=== PATIENT | male | born 1955 | race Caucasian/White ===

== ENCOUNTER 2021-10-24 15:40 | Inpatient (IN) ==
[2021-10-24 16:09] LABS: Basophils # (auto) 0.01 K/uL (0-0.2); Basophils % (auto) 0.1 %; Eosinophils # (auto) 0.01 K/uL (0-0.5); Eosinophils % (auto) 0.1 %; Hematocrit (blood only) 46.9 % (42-52); Hemoglobin 15.6 g/dL (14.0-18.0); Immature Granulocytes # (auto) 0.06 K/uL (0.00-0.02); Immature Granulocytes % (auto) 0.4 %; Lymphocytes # (auto) 0.34 K/uL (1.2-3.4); Lymphocytes % (auto) 2.2 %; Mean Corpuscular Hemoglobin 29.4 pg (25-34); Mean Corpuscular Hgb Conc 33.3 g/dL (32-36); Mean Corpuscular Volume 88.3 fL (80-100); Monocytes # (auto) 0.47 K/uL (0.11-0.59); Neutrophils # (auto) 14.74 K/uL (1.4-6.5); Neutrophils % (auto) 94.2 %; Platelet Count 221 K/uL (130-400); RDW Coefficient of Variation 14.6 % (11.5-14.5); RDW Standard Deviation 47.2 fL (36.4-46.3); Red Blood Count 5.31 M/uL (4.7-6.1); White Blood Count 15.63 K/uL (4.8-10.8)
[2021-10-24 16:24] LABS: Influenza A virus by PCR Negative (Negative); Influenza B virus by PCR Negative (Negative)
--- NOTE | 2021-10-24 16:55 | XRay Report ---
XR chest 1V portable CLINICAL HISTORY: tachycardic, febrile COMPARISON STUDY: No previous studies for comparison. FINDINGS: Lung volumes are normal. Lungs are clear. There is no pneumothorax or pleural effusion. Car diac size is normal. Mediastinal contours are normal. There is no evidence for pulmonary edema. IMPRESSION: No acute cardiopulmonary findings. ACT 112: Negative or not required by law. Electronically signed by: Rahul Pichardo M.D. 10/24/2021 4:54 PM
[2021-10-24] MEDS ORDERED: cefTRIAXone SODIUM 2,000 MG/70 ML BAG IV STA (17:23)
[2021-10-24] MEDS ORDERED: SODIUM CHLORIDE 0.9% 1000ML 1,000 ML IV ONE (17:23)
[2021-10-24] MEDS ORDERED: ACETAMINOPHEN 325 MG TAB PO STA (17:24)
[2021-10-24] MEDS ORDERED: VANCOMYCIN HCL 1,750 MG in SODIUM CHLORIDE 0.9% 500 ML IV STA (17:27)
[2021-10-24] MEDS ORDERED: PATIENT'S HEIGHT AND/OR WEIGHT NEEDED ONE (17:30)
--- NOTE | 2021-10-24 17:30 | Emergency Department Note ---
History of Present Illness General Chief complaint: Illness Stated complaint: tremors Time Seen by Provider: 10/24/21 17:13 Source: patient Mode of arrival: other (Longterm guards from the [facility]) Limitations: no limitations History of Present Illness This patient is a 66-year-old male who is currently an inmate at the [facility], comes in after having rigors since around 9:00 this morning. He has had some redness in his right leg. He said chronic issues with this leg since getting injured as a child he says that he gets infections and he usually takes oral antibiotics and gets better. He comes in today with a temperature of 39.4. He said no cough or shortness of breath he did vomited once but has no other nausea vomiting abdominal pain no dysuria hematuria no rash besides the redness in his leg no known sick contacts. He has been vaccinated against Covid. He has chronic swelling of the right leg that goes up and down. Home Medications Medication Instructions Recorded Confirmed Type No Known Home Medications 10/24/21 10/24/21 History Allergies Allergy/AdvReac Type Severity Reaction Status Date / Time No Known Allergies Allergy Unverified 10/24/21 18:32 Past Med/Surg History Social History Smoking Status: Former smoker Tobacco Type: Cigarettes Preferred Language: Indonesian Feels Safe at Home: Yes Immunizations: Past medical historyinjury to right leg with chronic swelling and intermittent cellulitis Social history currently at [facility]. He has history of using meth but denies other drugs Review of Systems A total of 10 systems reviewed and were otherwise negative Physical Exam Vital Signs Vital Signs - 24 hr 10/24/21 15:48 10/24/21 17:21 10/24/21 18:01 Temperature 39.4 C H Temperature Source Oral Pulse Rate 120 H 111 H Pulse Rate [Apical] 112 H Pulse Rate from SpO2 Sensor Pulse Strength [Apical] Normal Respiratory Rate 18 16 28 H Respiratory Effort / Characteristics Non-Labored Respiratory Depth Normal Blood Pressure 159/84 H Blood Pressure [Left Arm] 142/79 H Blood Pressure Mean 109 Blood Pressure Mean [Left Arm] 100 Pulse Oximetry 98 98 Oxygen Delivery Method Room Air Room Air Sepsis Recent Fever Within 48 Hours Yes Sepsis New/Unexplained Change in Mental Status No Sepsis Action Taken by Nursing No Action Required 10/24/21 18:30 10/24/21 19:00 10/24/21 19:30 Temperature Temperature Source Pulse Rate 111 H 109 H 104 H Pulse Rate [Apical] Pulse Rate from SpO2 Sensor 111 H Pulse Strength [Apical] Respiratory Rate 28 H 27 H 24 Respiratory Effort / Characteristics Respiratory Depth Blood Pressure 142/72 H Blood Pressure [Left Arm] Blood Pressure Mean 95 Blood Pressure Mean [Left Arm] Pulse Oximetry 94 Oxygen Delivery Method Sepsis Recent Fever Within 48 Hours Sepsis New/Unexplained Change in Mental Status Sepsis Action Taken by Nursing 10/24/21 20:00 Temperature Temperature Source Pulse Rate 105 H Pulse Rate [Apical] Pulse Rate from SpO2 Sensor Pulse Strength [Apical] Respiratory Rate 20 Respiratory Effort / Characteristics Respiratory Depth Blood Pressure 110/54 L Blood Pressure [Left Arm] Blood Pressure Mean 72 Blood Pressure Mean [Left Arm] Pulse Oximetry 97 Oxygen Delivery Method Room Air Sepsis Recent Fever Within 48 Hours Sepsis New/Unexplained Change in Mental Status Sepsis Action Taken by Nursing General: Well developed well nourished older male who appears in no acute distress, breathing comfortably on room air. Normal speech HEENT: Normal cephalic atraumatic. Pupils are equal round and reactive to light. Extraocular movements are intact. Oropharynx is pink with moist mucous membranes. No swelling of the mouth lips or tongue. Neck: Supple with a midline trachea. No meningeal signs or stiffness, no JVD or bruits. No Stridor. Chest: Clear to auscultation bilaterally. No wheezes or rhonchi. No increased work of breathing. Heart: Regular rate and rhythm without murmurs or gallops. Abdomen: Soft nontender, nondistended without rebound guarding or rigidity. Extremities: No cyanosis clubbing or edema. Redness in right calf diffusely with some swelling. Normal distal pulses. Normal motor and sensation. Spine/Back. Non tender to palpation. No CVA tenderness Skin: Good turgor without rashes. Neurologic exam: Cranial nerves two through 12 are intact. Motor and sensation are intact and symmetrical throughout. Course Administered Medications Discontinued Medications Acetaminophen (Acetaminophen 325 Mg Tab) 650 mg PO NOW STA Stop: 10/24/21 17:25 Last Admin: 10/24/21 18:26 Dose: 650 mg Documented by: [id number] Sodium Chloride (Nss 1000ml) 1,000 mls @ 999 mls/hr IV .Q1H1M ONE Stop: 10/24/21 18:23 Last Infusion: 10/24/21 20:51 Dose: 0 mls/hr Documented by: [id number] Admin: 10/24/21 19:47 Dose: 999 mls/hr Documented by: [id number] Ceftriaxone Sodium (Rocephin) 2,000 mg in 70 mls @ 140 mls/hr IV NOW STA Stop: 10/24/21 17:52 Last Infusion: 10/24/21 21:50 Dose: 0 mls/hr Documented by: [id number] Admin: 10/24/21 19:44 Dose: 140 mls/hr Documented by: [id number] Vancomycin HCl 1,500 mg/ (Sodium Chloride) 530 mls @ 200 mls/hr IV NOW ONE Stop: 10/24/21 20:23 Last Admin: 10/24/21 22:05 Dose: 200 mls/hr Documented by: [id number] Medical Decision Making Differential Diagnosis Sepsis, cellulitis, DVT, Covid, electrolyte or metabolic abnormality Medical Records Attestation: I reviewed the patient's medical records. Home Medications Current Medication List: was personally reviewed by me Laboratory Data Attestation: I reviewed the patient's lab results. Result diagrams: 10/24/21 15:55 10/24/21 17:18 Lab Results 10/24/21 10/24/21 10/24/21 Range/Units 15:55 15:55 15:55 WBC 15.63 H (4.8-10.8) K/uL RBC 5.31 (4.7-6.1) M/uL Hgb 15.6 (14.0-18.0) g/dL Hct 46.9 (42-52) % MCV 88.3 (80-100) fL MCH 29.4 (25-34) pg MCHC 33.3 (32-36) g/dL RDW Std Deviation 47.2 H (36.4-46.3) fL RDW Coeff of Conner 14.6 H (11.5-14.5) % Plt Count 221 (130-400) K/uL MPV 12.0 H (7.4-10.4) fL Immature Gran % (Auto) 0.4 % Neut % (Auto) 94.2 % Lymph % (Auto) 2.2 % Wilkes % (Auto) 3.0 % Eos % (Auto) 0.1 % Baso % (Auto) 0.1 % Neut # (Auto) 14.74 H (1.4-6.5) K/uL Lymph # (Auto) 0.34 L (1.2-3.4) K/uL Wilkes # (Auto) 0.47 (0.11-0.59) K/uL Eos # (Auto) 0.01 (0-0.5) K/uL Baso # (Auto) 0.01 (0-0.2) K/uL Immature Gran # (Auto) 0.06 H (0.00-0.02) K/uL PT Cancelled INR Cancelled APTT Cancelled PTT Ratio Cancelled Sodium Cancelled Potassium Cancelled Chloride Cancelled Carbon Dioxide Cancelled Anion Gap Cancelled BUN Cancelled Creatinine Cancelled Est Cr Clr Drug Dosing Cancelled Est GFR ( Amer) Cancelled Est GFR (Non-Af Amer) Cancelled BUN/Creatinine Ratio Cancelled Glucose Cancelled Lactate (0.4-2.0) mmol/L Calcium Cancelled Magnesium (1.8-2.4) mg/dl Total Bilirubin Cancelled AST Cancelled ALT Cancelled Alkaline Phosphatase Cancelled Total Protein Cancelled Albumin Cancelled Globulin Cancelled Albumin/Globulin Ratio Cancelled Influ A Molecular Assay (Negative) Influ B Molecular Assay (Negative) SARS-CoV-2 RNA (GEORGIE) SARS-CoV-2, RNA, NAAT (NEGATIVE) 10/24/21 10/24/21 10/24/21 Range/Units 15:55 15:55 17:18 WBC (4.8-10.8) K/uL RBC (4.7-6.1) M/uL Hgb (14.0-18.0) g/dL Hct (42-52) % MCV (80-100) fL MCH (25-34) pg MCHC (32-36) g/dL RDW Std Deviation (36.4-46.3) fL RDW Coeff of Conner (11.5-14.5) % Plt Count (130-400) K/uL MPV (7.4-10.4) fL Immature Gran % (Auto) % Neut % (Auto) % Lymph % (Auto) % Wilkes % (Auto) % Eos % (Auto) % Baso % (Auto) % Neut # (Auto) (1.4-6.5) K/uL Lymph # (Auto) (1.2-3.4) K/uL Wilkes # (Auto) (0.11-0.59) K/uL Eos # (Auto) (0-0.5) K/uL Baso # (Auto) (0-0.2) K/uL Immature Gran # (Auto) (0.00-0.02) K/uL PT 10.3 INR 1.0 APTT 21.3 PTT Ratio 0.8 Sodium Potassium Chloride Carbon Dioxide Anion Gap BUN Creatinine Est Cr Clr Drug Dosing Est GFR ( Amer) Est GFR (Non-Af Amer) BUN/Creatinine Ratio Glucose Lactate (0.4-2.0) mmol/L Calcium Magnesium (1.8-2.4) mg/dl Total Bilirubin AST ALT Alkaline Phosphatase Total Protein Albumin Globulin Albumin/Globulin Ratio Influ A Molecular Assay Negative (Negative) Influ B Molecular Assay Negative (Negative) SARS-CoV-2 RNA (GEORGIE) Cancelled SARS-CoV-2, RNA, NAAT (NEGATIVE) 10/24/21 10/24/21 10/24/21 Range/Units 17:18 17:45 17:49 WBC (4.8-10.8) K/uL RBC (4.7-6.1) M/uL Hgb (14.0-18.0) g/dL Hct (42-52) % MCV (80-100) fL MCH (25-34) pg MCHC (32-36) g/dL RDW Std Deviation (36.4-46.3) fL RDW Coeff of Conner (11.5-14.5) % Plt Count (130-400) K/uL MPV (7.4-10.4) fL Immature Gran % (Auto) % Neut % (Auto) % Lymph % (Auto) % Wilkes % (Auto) % Eos % (Auto) % Baso % (Auto) % Neut # (Auto) (1.4-6.5) K/uL Lymph # (Auto) (1.2-3.4) K/uL Wilkes # (Auto) (0.11-0.59) K/uL Eos # (Auto) (0-0.5) K/uL Baso # (Auto) (0-0.2) K/uL Immature Gran # (Auto) (0.00-0.02) K/uL PT INR APTT PTT Ratio Sodium 136 Potassium 3.8 Chloride 106 Carbon Dioxide 24 Anion Gap 6.0 BUN 13 Creatinine 1.09 Est Cr Clr Drug Dosing 58.8 Est GFR ( Amer) 82.1 Est GFR (Non-Af Amer) 70.9 BUN/Creatinine Ratio 11.9 Glucose 105 H Lactate (0.4-2.0) mmol/L Calcium 9.5 Magnesium 1.9 (1.8-2.4) mg/dl Total Bilirubin 0.7 AST 36 ALT 61 Alkaline Phosphatase 108 Total Protein 8.4 H Albumin 4.1 Globulin 4.3 H Albumin/Globulin Ratio 1.0 Influ A Molecular Assay Cancelled (Negative) Influ B Molecular Assay Cancelled (Negative) SARS-CoV-2 RNA (GEORGIE) SARS-CoV-2, RNA, NAAT NEGATIVE (NEGATIVE) 10/24/21 Range/Units 18:00 WBC (4.8-10.8) K/uL RBC (4.7-6.1) M/uL Hgb (14.0-18.0) g/dL Hct (42-52) % MCV (80-100) fL MCH (25-34) pg MCHC (32-36) g/dL RDW Std Deviation (36.4-46.3) fL RDW Coeff of Conner (11.5-14.5) % Plt Count (130-400) K/uL MPV (7.4-10.4) fL Immature Gran % (Auto) % Neut % (Auto) % Lymph % (Auto) % Wilkes % (Auto) % Eos % (Auto) % Baso % (Auto) % Neut # (Auto) (1.4-6.5) K/uL Lymph # (Auto) (1.2-3.4) K/uL Wilkes # (Auto) (0.11-0.59) K/uL Eos # (Auto) (0-0.5) K/uL Baso # (Auto) (0-0.2) K/uL Immature Gran # (Auto) (0.00-0.02) K/uL PT INR APTT PTT Ratio Sodium Potassium Chloride Carbon Dioxide Anion Gap BUN Creatinine Est Cr Clr Drug Dosing Est GFR ( Amer) Est GFR (Non-Af Amer) BUN/Creatinine Ratio Glucose Lactate 2.5 H* (0.4-2.0) mmol/L Calcium Magnesium (1.8-2.4) mg/dl Total Bilirubin AST ALT Alkaline Phosphatase Total Protein Albumin Globulin Albumin/Globulin Ratio Influ A Molecular Assay (Negative) Influ B Molecular Assay (Negative) SARS-CoV-2 RNA (GEORGIE) SARS-CoV-2, RNA, NAAT (NEGATIVE) Imaging Data Attestation: I personally reviewed and interpreted this imaging study as follows: My Impression: Chest x-rayno acute infiltrate, failure, pneumothorax seen Radiologist's Impression: Chest X-Ray 10/24/21 15:55 XR chest 1V portable CLINICAL HISTORY: tachycardic, febrile COMPARISON STUDY: No previous studies for comparison. FINDINGS: Lung volumes are normal. Lungs are clear. There is no pneumothorax or pleural effusion. Cardiac size is normal. Mediastinal contours are normal. There is no evidence for pulmonary edema. IMPRESSION: No acute cardiopulmonary findings. ACT 112: Negative or not required by law. Electronically signed by: Rahul Pichardo M.D. 10/24/2021 4:54 PM ECG Data Attestation: I personally reviewed and interpreted this ECG as follows: Indication: + weakness Rate (beats per minute): 113 Rhythm: + sinus tachycardia ECG Intervals/blocks: + Normal QRS, + Normal QT and + Normal GA ECG [place]: + Normal ECG ST segments: + Normal ST segments ECG Findings: + PVCs; no PACs Comparison ECG Date: no prior available MDM Narrative This patient comes in as scribed above he has rigors and a fever he has a right swollen red leg which I think is source is cellulitis to that leg he has had problems since being injured as a child. IV access was established I ordered a full sepsis type work-up he was given IV fluid boluses. He looks well. He was given acetaminophen p.o. for his fever and also broad-spectrum antibiotics with IV Rocephin and IV vancomycin. He denies any allergies. He was reassessed frequently. His EKG does not suggest acute coronary syndrome or arrhythmia he does of an elevated white count and lactic acid is mildly elevated 2.5. I do think he needs to be admitted for further IV antibiotics treatment and evaluation. His white count was elevated 15. Ultrasound did not show any evidence of DVT. Chest x-ray has not shown pneumonia. The patient was a difficult IV access and IV team did get an 18-gauge ultrasound-guided large IV. This did delay his fluids and antibiotics however. I have consulted Dr. Abbott for the [facility] to see him for these measures Continuous cardiac monitoring: Orders placed in EMR for continuous cardiac monitoring. Upon my interpretation was noted to be in sinus tachycardia with a rate of 120 Impression & Plan Cellulitis of leg, right, Sepsis, Imprisonment and other incarceration, Lab test negative for COVID-19 virus Discharge Plan Visit Data Chief Complaint: Illness Stated Complaint: tremors ED Provider: Avery Connell Discharge Problem: Cellulitis of leg, right, Sepsis, Imprisonment and other incarceration, Lab test negative for COVID-19 virus
[2021-10-24 17:39] LABS: Partial Thromboplastin Ratio 0.8; Partial Thromboplastin Time 21.3 Seconds (21.0-31.0); Prothrombin Time 10.3 Seconds (9.0-12.0)
[2021-10-24] MEDS ORDERED: VANCOMYCIN HCL 1,500 MG in SODIUM CHLORIDE 0.9% 500 ML IV ONE (17:45)
[2021-10-24 17:50] LABS: Albumin Level 4.1 gm/dl (3.4-5.0); BUN Creatinine Ratio 11.9 (10-20); Calcium 9.5 mg/dl (8.5-10.1); Creatinine Clr Calc Pharmacy 58.8 ml/min; Est GFR (African American) 82.1 ml/min; Est GFR (Non-African American) 70.9 ml/min; Magnesium 1.9 mg/dl (1.8-2.4); Potassium 3.8 mmol/L (3.5-5.1)
[2021-10-24 17:53] LABS: Bilirubin,Total 0.7 mg/dl (0.2-1); Globulin 4.3 gm/dl (2.5-4.0); Total Protein 8.4 gm/dl (6.4-8.2)
--- NOTE | 2021-10-24 19:48 | History & Physical Report ---
Date of Service October 24, 2021 Assessment & Plan (1) Cellulitis of leg, right: Plan: Patient is a 66 year old with no past medical or surgical history that presents with history of rigors, chills, and redness/pain/swelling of his RLE. R Leg Cellulitis -In addition to sepsis by SIRS criteria with Temp 39.4C, White count >15k, Tachycardic 104bpm, Lactic acid 2.5 on admission -Received CTX and Vancomycin in ED in addition to 1L NSS -Will continue Vancomycin and CTX IV -Blood cultures pending -Repeat lactate ordered -Continue hydration with NSS +20meq KCl 100ml/hr x2 L -Low suspicion for DVT, though with patient's pain, swelling, and redness, will check a RLE Venous Doppler Dispo: Med/Surg Telemetry for monitoring while septic, likely downgrade to med- surg once properly fluid resuscitated FEN: Regular diet, NSS +KCl 100ml/hr x2L DVT: Lovenox Code: Full (2) Sepsis: History of Present Illness Chief Complaint: rigors, chills Primary Care Provider: ERNST Buchanan Patient is a 66 year old with no past medical or surgical history that presents with history of rigors, chills, and redness/pain/swelling of his RLE. Patient notes that around 9AM this morning he had woke up with chills and shaking. He also notes that he started with swelling and redness in his RLE shortly afterwards. Interestingly enough, he notes that he injured this leg when he was a teen and since then every so often he would have a similar presentation that would require antibiotics before the redness, pain, and swelling would dissipate. He notes currently that he has a headache, tenderness to palpation of his distal RLE, fever, and chills. He denies any NVD, SOB, Chest pain, chest pressure, abdominal pain, dysuria. Med Hx: History of a heart murmur that has "been there since I was little" Surg Hx: pt denies any history of surgeries Soc Hx: Pt denies tobacco, alcohol, illicit drug use Medications: Patient denies use of any chronic medications Allergies Allergy/AdvReac Type Severity Reaction Status Date / Time No Known Allergies Allergy Unverified 10/24/21 18:32 Home Medications Medication Instructions Recorded Confirmed Type No Known Home Medications 10/24/21 10/24/21 History Past Med/Surg History Social History Smoking Status: Unknown if ever smoked Tobacco Type: Cigarettes Preferred Language: Ugandan Communication Ability: Effective [employer] Required: No Beliefs That Will Affect Care: None Current Living Situation: Other Current Living Situation Comment: [facility] Feels Safe at Home: Yes Assistive Devices: None Review of Systems Review of Systems: All systems reviewed & are unremarkable except as noted in Subjective Physical Exam Constitutional: well developed, well nourished and cooperative; no acute distress and + not appropriately hydrated Eyes: PERRL, conjunctivae normal, anicteric sclerae ENMT: external ear and nose normal, oropharynx normal Mouth: + edentulous (on bottom, not wearing his dentures ) Neck: trachea midline, no thyromegaly Respiratory: normal respiratory effort, lungs clear to auscultation Cardiovascular: Rate/Rhythm: regular rhythm and + tachycardic Heart Sounds: normal S1, normal S2 and + murmur (2-3/6 MARQUEZ ) Vessels: no JVD Extremities: + calf tenderness (RLE ) and + edema (1+ RLE ) Gastrointestinal (Abdomen): normal bowel sounds, soft, nontender, no hep atosplenomegaly Musculoskeletal: no cyanosis or clubbing, extremities motor strength 5/5 Skin: Erythema noted just below the R knee spreading towards just proximal to the R ankle. Leg is tender to palpation wild mild swelling. A few healing abrasions are noted on the anterior tibia. Neurologic: PERRL, EOMI, accommodation nl, no face palsy, no dysarthria Psychiatric: A+Ox3, euthymic affect Results & Data Results & Data (MN) Vital Signs (Past 12 Hours) Vital Signs Temp Pulse Pulse Resp BP BP Pulse Ox 10/24/21 17:21 112 H 16 142/79 H 98 10/24/21 15:48 39.4 C H 120 H 18 159/84 H 98 Supervising Physician Co-Signing Physician Notes Attending addendum: I have physically seen this patient, have supervised the medical residents activities, and agree with the H&P unless as otherwise noted. Assessment and Plan: Cellulitis of right leg- Continue vancomycin IV and ceftriaxone IV begun in the ED Follow blood culture and sensitivities NSS + KCl 20 mEq at 100 mils per hour x2 L Order right lower extremity venous Doppler Remaining orders and notations as noted Resident Activity Tracking Resident Involvement: Resident Care Provided Care Provided: Adult Hospital Medicine
[2021-10-24 22:10] LABS: Appearance Urine Clear (Clear); Bilirubin Urine Negative (Negative); Blood Urine Negative (Negative); Color Urine Yellow; Glucose Urine UA Negative (Negative); Ketones Urine Negative (Negative); Leukocyte Esterase Urine Negative (Negative); Nitrite Urine Negative (Negative); Protein Urine Negative (Negative); Specific Gravity Urine 1.014 (1.000-1.030); Urobilinogen Urine Negative (Negative)
[2021-10-24] MEDS ORDERED: VANCOMYCIN CONSULT ACTIVE PRN (22:51)
[2021-10-24] MEDS ORDERED: ONDANSETRON INJ 2 MG/ML 2 ML VIAL IV PRN (22:51)
[2021-10-25] MEDS: ACETAMINOPHEN 325 MG TAB PO PRN ×2 (00:06→17:25)
[2021-10-25] MEDS: NSS + 20MEQ KCL 20 MEQ/1,000 ML BAG IV SCH ×2 (01:48→15:14)
--- NOTE | 2021-10-25 06:33 | Hospitalist Progress Note ---
Date of Service October 25, 2021 Assessment & Plan (1) Cellulitis of leg, right: Plan: Patient is a 66 year old male inmate w/ PMHx of meth IVDU and arthritis who presents with fever, rigors and redness/pain/swelling of his RLE. R Leg Cellulitis with sepsis -In addition to sepsis by SIRS criteria with Temp 39.4C, White count >15k, Tachycardic 104bpm, Lactic acid 2.5 on admission. Afebrile during day but spiked to 38.8C in afternoon. -Received CTX and Vancomycin in ED in addition to 1L NSS -Started on vancomycin and CTX IV. DC CTX because cellulitis is nonpurulent -Blood cultures pending, set 1 prelim neg x 24 hrs -Hx of IVDU and murmur noted on admission exam, but lower suspicion of endocarditis at this time. Will follow blood cultures; less likely to have endocarditis if not bacteremic -Continue hydration with NSS +20meq KCl 100ml/hr x2 L -Low suspicion for DVT, though with patient's pain, swelling, and redness, will check a RLE Venous Doppler Hypokalemia -Repleting. Mg 1.9. Follow BMP Dispo: Med/Surg Telemetry FEN: Regular diet. IV fluids discontinued. DVT: Lovenox Code: Full (2) Sepsis: Admission and Anticipated Discharge Date Admission Date: October 24, 2021 Supervising Physician Co-Signing Physician Notes Generally feeling okay except for the fact that his right leg is still red and swollen, may be even a little bit worse. Notes this has happened several times in the past. Does not recall any sort of circulation evaluation. Vitals noted, in general he is awake and alert pleasant no distress. HEENT normocephalic atraumatic mucous membranes moist. Breathing unlabored no accessory muscle use good effort. Right lower extremity shows diffuse erythema up to just distal of the knee, the knee itself does not really seem to be involved, he does have some very faint pink blotchiness proximal to the knee on his anterior thigh, and an extremely faint pink streak in his medial thigh none of which are tender. There is no crepitus/sloughing/etc. Cellulitis with sepsisgiven the faint streaking in his medial thigh, I wonder if he also had a degree of lymphangitis, which would probably explain why he had such a marked septic response. Fortunately clinically he appears more stable from a sepsis standpoint (good blood pressure, heart rate, temperature)his white count did go up, but antibiotics were just started yesterday, and he shows no concerning endorgan dysfunction. Nothing appears clinically consistent with necrotizing fasciitis. Continue Vanco and supportive care, anticipate improvement soon. While his foot appears to be spared, and it would be a bit odd for vascular disease to manifest as a initially mid tibial cellulitic process, given that he gets infections over and over, it may be reasonable as an outpatient to evaluate for any sort of circulatory dysfunction. DVT prophylaxisLovenox Subjective Chills since 2 nights ago. RLE swelling and erythema since yesterday AM. From [facility]. Has had intermittent cellulitis of RLE for years, started after wound injury at age 20. He gets flares every few months. Denies tick bites. Hx of meth IV drug use, last used 1 yr ago. ROS: has chills and myalgias. No chest pain. Had MOREL upon ED arrival. Otherwise healthy. Has chronic arthritic pains. Has had chronic neuropathic burning sensation, mild, at R lateral thigh. Review of Systems Review of Systems: All systems reviewed & are unremarkable except as noted in HPI & below See HPI Physical Exam Physical Exam: General: Grossly A&O. NAD. Cooperative. HEENT: Atraumatic, normocephalic. EOMI Pulm: CTAB anteriorly. -wheezes, -rales, -rhonchi. No respiratory distress. Cardiac: RRR, -mrg. 3+ RLE pitting edema. No murmur on my exam. Integ: RLE bright erythema of lower leg. Msk: Patient did not have severe pain during palpation of edema of leg while assessing for pitting edema. Results & Data Results & Data ([facility]) Vital Signs (Past 12 Hours) Vital Signs tachy to 110s, 100s at admission, tachycardia resolved. BPs 100s-110s/~50s. 98 on room air ->95 on 6L NC Temp Pulse Pulse Resp BP BP Pulse Ox 10/25/21 05:23 71 16 115/69 95 10/25/21 05:00 82 16 112/47 L 98 10/24/21 22:51 36.9 C 90 16 100/50 L 98 10/24/21 22:50 98 H 16 104/56 L 98 10/24/21 21:00 103 H 20 97 10/24/21 20:30 100 H 20 97 10/24/21 20:00 105 H 20 110/54 L 97 10/24/21 19:30 104 H 24 142/72 H 10/24/21 19:00 109 H 27 H Pulse Ox 10/25/21 05:23 10/25/21 05:00 10/24/21 22:51 98 10/24/21 22:50 10/24/21 21:00 10/24/21 20:30 10/24/21 20:00 10/24/21 19:30 10/24/21 19:00 Laboratory Results admission labs wbc 15.63. BMP acceptable. K 3.8. Cr 1.09, baseline unknown. lactate 2.8H. Mg 1.9. UA not suggestive of infection. cxr no acute. venous doppler neg DVT RLE. + mild R inguinal LAD. 10/24 BC pending. ecg 113 sinus tach w/ pvcs AM labs: wbc 15.63->24.29. K 3.4 Diagnostic Findings Chest X-Ray 10/24/21 15:55 XR chest 1V portable CLINICAL HISTORY: tachycardic, febrile COMPARISON STUDY: No previous studies for comparison. FINDINGS: Lung volumes are normal. Lungs are clear. There is no pneumothorax or pleural effusion. Cardiac size is normal. Mediastinal contours are normal. There is no evidence for pulmonary edema. IMPRESSION: No acute cardiopulmonary findings. ACT 112: Negative or not required by law. Electronically signed by: Rahul Pichardo M.D. 10/24/2021 4:54 PM Venous Doppler Study 10/24/21 19:54 RIGHT LOWER EXTREMITY VENOUS DOPPLER HISTORY: Right leg swelling and redness COMPARISON STUDY: None. FINDINGS: There is normal compressibility, flow, and augmentation within the right lower extremity deep venous system. Mild right inguinal lymphadenopathy. Dominant lymph node measures 24 x 16 x 11 mm. IMPRESSION: No DVT within the right lower extremity. Mild right inguinal lymphadenopathy. This may be reactive. ACT 112: Negative or not required by law. Electronically signed by: Galo Ty M.D. 10/25/2021 8:10 AM Resident Activity Tracking Resident Involvement: Resident Care Provided Care Provided: Adult Hospital Medicine (1) Sepsis Sepsis acute organ dysfunction status: unspecified Sepsis type: sepsis due to unspecified organism Qualified Code(s): A41.9 - Sepsis, unspecified organism
--- NOTE | 2021-10-25 07:39 | Electrocardiogram Report ---
Test Reason : Blood Pressure : / mmHG Vent. Rate : 113 BPM Atrial Rate : 113 BPM P-R Int : 180 ms QRS Dur : 096 ms QT Int : 318 ms P-R-T Axes : 054 003 055 degrees QTc Int : 436 ms Sinus tachycardia with frequent Premature ventricular complexes Otherwise normal ECG No previous ECGs available Confirmed by Virgil Ontiveros ([id number]) on 10/25/2021 7:38:41 AM Referred By: Dewayne DUKES Confirmed By:Gutierrez Ontiveros
--- NOTE | 2021-10-25 08:11 | Ultrasound Report ---
RIGHT LOWER EXTREMITY VENOUS DOPPLER HISTORY: Right leg swelling and redness COMPARISON STUDY: None. FINDINGS: There is normal compressibility, flow, and augmentation within the right lower extremity de ep venous system. Mild right inguinal lymphadenopathy. Dominant lymph node measures 24 x 16 x 11 mm. IMPRESSION: No DVT within the right lower extremity. Mild right inguinal lymphadenopathy. This may be reactive. ACT 112: Negative or not required by law. Electronically signed by: Galo Ty M.D. 10/25/2021 8:10 AM
--- NOTE | 2021-10-25 08:14 | Pharmacy Report ---
Pharmacy Abx Initial Consult - Date of Service October 25, 2021 - Pharmacy Dosing Scope Date of Consult: 10/24/21 Consultation requested by: Dr. Velasco Pharmacy is consulted to initiate Vancomycin IV/PO dosing therapy, order appropriate labs and adjust drug dose/frequency. - Subjective The patient is a 66 year old M admitted on 10/24/21 20:01. - Objective Height: 5 ft 5 in Weight: 66.5 kg Vital Signs (Past 12hrs): Vital Signs Temp Pulse Pulse Resp BP BP Pulse Ox 10/25/21 05:23 71 16 115/69 95 10/25/21 05:00 82 16 112/47 L 98 10/24/21 22:51 36.9 C 90 16 100/50 L 98 10/24/21 22:50 98 H 16 104/56 L 98 10/24/21 21:00 103 H 20 97 10/24/21 20:30 100 H 20 97 Pulse Ox 10/25/21 05:23 10/25/21 05:00 10/24/21 22:51 98 10/24/21 22:50 10/24/21 21:00 10/24/21 20:30 Lab Results (24hrs): Laboratory Tests (24 Hours) 10/24/21 10/24/21 10/24/21 17:18 15:55 15:55 WBC 15.63 H Neut # (Auto) 14.74 H Creatinine 1.09 Cancelled Est Cr Clr Drug Dosing 58.8 Cancelled Micro Results: 10/24/21 18:55 Aerobic Blood Culture - Pending Blood Anaerobic Blood Culture - Pending 10/24/21 18:00 Aerobic Blood Culture - Pending Blood Anaerobic Blood Culture - Pending - Risk Factors for Resistance * Resident in a correctional facility * History of infection with a multidrug-resistant organism: None noted * Antimicrobial use within the last 90 days: None noted - Assessment & Plan Assessment 66 year old M presenting with rigors, chills, and redness/pain/swelling of RLE which began yesterday morning around 0900. Patient does have elevated WBCs and had Tmax 39.4. Patient also started on Ceftriaxone 2gm IV q24h. Plan Vancomycin for treatment of cellulitis Vancomycin IV * Estimated PK Parameters: Vd 0.74 L/kg, Efren 0.053 hr-1, t1/2 13 hr * Loading dose: 1500 mg (22.6 mg/kg) * Maintenance dose: 750 mg IV (11.3 mg/kg) every 12 hours * Goal trough level : ~15 mcg/mL * Trough/Random level ordered for 10/26/21 @ 0930 AUC/NOAH is the preferred PK/PD target for vancomycin * AUC guided dosing is effective and associated with decreased risk of nephrotoxicity compared to traditional trough targets * Trough level of 18.0 mcg/mL is predicted to achieve target AUC/NOAH of 400-600 mg/L.hr and may be associated with a 14 % risk of nephrotoxicity Pharmacy will continue to follow and will adjust dose/frequency as necessary. Thank you.
[2021-10-25 10:19] LABS: Hematocrit (blood only) 38.5 % (42-52); Hemoglobin 13.2 g/dL (14.0-18.0); Mean Corpuscular Hemoglobin 29.9 pg (25-34); Mean Corpuscular Hgb Conc 34.3 g/dL (32-36); Mean Corpuscular Volume 87.1 fL (80-100); Mean Platelet Volume 11.1 fL (7.4-10.4); Platelet Count 200 K/uL (130-400); RDW Coefficient of Variation 14.7 % (11.5-14.5); RDW Standard Deviation 47.5 fL (36.4-46.3); Red Blood Count 4.42 M/uL (4.7-6.1); White Blood Count 24.29 K/uL (4.8-10.8)
[2021-10-25 10:42] LABS: BUN Creatinine Ratio 13.6 (10-20); Calcium 8.6 mg/dl (8.5-10.1); Creatinine Clr Calc Pharmacy 67.4 ml/min; Est GFR (Non-African American) 83.7 ml/min; Potassium 3.4 mmol/L (3.5-5.1)
[2021-10-25 10:56] LABS: Basophils # (auto) 0.01 K/uL (0-0.2); Immature Granulocytes # (auto) 0.08 K/uL (0.00-0.02); Immature Granulocytes % (auto) 0.3 %; Lymphocytes # (auto) 0.56 K/uL (1.2-3.4); Lymphocytes % (auto) 2.3 %; Monocytes # (auto) 0.38 K/uL (0.11-0.59); Monocytes % (auto) 1.6 %; Neutrophils # (auto) 23.26 K/uL (1.4-6.5); Neutrophils % (auto) 95.8 %
[2021-10-25] MEDS: ENOXAPARIN INJ 40 MG/0.4 ML SYR SQ SCH (12:40)
[2021-10-25] MEDS: VANCOMYCIN HCL 750 MG in SODIUM CHLORIDE 0.9% 500 ML IV SCH ×2 (12:43→21:37)
--- NOTE | 2021-10-25 18:40 | Billing Data ---
Date of Service October 25, 2021 Coding Level of Care Code 27172 Subseq Hosp Care Lvl 3
[2021-10-25] MEDS ORDERED: POTASSIUM CHLORIDE PWD 20 MEQ PACK PO STA (19:07)
[2021-10-25] MEDS ORDERED: cefTRIAXone SODIUM 2,000 MG in DEXTROSE 5% 50 ML IV SCH (20:00)
[2021-10-26] MEDS: ACETAMINOPHEN 325 MG TAB PO PRN (02:48)
--- NOTE | 2021-10-26 03:17 | Billing Data ---
Date of Service October 26, 2021 Coding Level of Care Code 49685 Initial Inpt Care Lvl 2
--- NOTE | 2021-10-26 06:54 | Hospitalist Progress Note ---
Date of Service October 26, 2021 Assessment & Plan (1) Cellulitis of leg, right: Plan: Patient is a 66 year old male inmate w/ PMHx of meth IVDU and arthritis who presents with fever, rigors and redness/pain/swelling of his RLE. R Leg Cellulitis with sepsis; clinically improving -In addition to sepsis by SIRS criteria with Temp 39.4C, White count >15k, Tachycardic 104bpm, Lactic acid 2.5 on admission. Afebrile during day but spiked to 38.8C in afternoon. No hypoxia (6L O2 req was documentation error) - continues to spike fever in evening -Received CTX and Vancomycin in ED in addition to 1L NSS -No wound cultures obtained -Started on vancomycin and CTX IV. Dc'd CTX because cellulitis is nonpurulent -Blood cultures pending, prelim neg x 48 hrs -Hx of IVDU and murmur noted on admission exam, but lower suspicion of endocarditis at this time; murmur since childhood. Will follow blood cultures; less likely to have endocarditis if not bacteremic -Low suspicion for DVT, though with patient's pain, swelling, and redness, will check a RLE Venous Doppler Hypokalemia -Repleting. Mg 1.9. Follow BMP Dispo: Med/Surg Telemetry FEN: Regular diet. IV fluids discontinued. DVT: Lovenox Code: Full (2) Sepsis: Admission and Anticipated Discharge Date Admission Date: October 24, 2021 Supervising Physician Co-Signing Physician Notes Attending addendum: I have physically seen this patient, have supervised the medical residents activities, and agree with the progress note above unless as otherwise noted. Assessment and Plan: Cellulitis of right leg- Continue vancomycin IV Ceftriaxone has been stopped. Erythema appears to have decreased. Follow blood culture and sensitivities Remaining orders and notations as noted Subjective Feeling better today than yesterday. + f/c/diaphoresis, mild. Myalgias resolved. No JOHNSON, cp, sob, dizziness, palpitations, abd, or urinary symptoms. Patient states he has had heart murmur since childhood. He has not had RLE pain since onset of symptoms. Review of Systems Review of Systems: See HPI Physical Exam Physical Exam: General: Grossly A&O. NAD. Cooperative. HEENT: Atraumatic, normocephalic. EOMI Pulm: CTAB anteriorly. -wheezes, -rales, -rhonchi. No respiratory distress. Cardiac: RRR, -rg. 2/6 systolic ejection murmur at pulmonic area. 3+ RLE pitting edema. Integ: RLE bright erythema of lower leg, color is somewhat duller and area of erythema regressed some, from start of knee down to 1-2 inches lower, demarcated by marker. Msk: Patient did not have pain during palpation of edema of leg while assessing for pitting edema. Moving knee and ankle w/o pain. Neuro: sensation intact of BLE. Results & Data Results & Data ([facility]) Vital Signs (Past 12 Hours) Vital Signs 38.8C at 1730. 38.2C at 0334. Other vitals reviewed. 95 on RA. Telemetry w/ some PVCs and PACs Temp Pulse Pulse Resp BP Pulse Ox 10/26/21 03:34 38.2 C H 95 H 18 143/75 H 95 10/25/21 23:50 37.4 C 80 18 126/67 99 10/25/21 21:56 79 10/25/21 19:50 37.1 C 82 18 128/68 95 Laboratory Results wbc 15.63->24.29->16.37. Hb stable 13.2. Plts 221->200->167. K 3.4->3.8. 10/24 BC NG 48 hrs. Resident Activity Tracking Resident Involvement: Resident Care Provided Care Provided: Adult Hospital Medicine (1) Sepsis Sepsis acute organ dysfunction status: unspecified Sepsis type: sepsis due to unspecified organism Qualified Code(s): A41.9 - Sepsis, unspecified organism
[2021-10-26] MEDS ORDERED: VANCOMYCIN TROUGH ONE (09:30)
[2021-10-26 10:20] LABS: BUN Creatinine Ratio 12.5 (10-20); Calcium 8.5 mg/dl (8.5-10.1); Creatinine Clr Calc Pharmacy 61.6 ml/min; Est GFR (African American) 86.9 ml/min; Potassium 3.8 mmol/L (3.5-5.1)
[2021-10-26 10:31] LABS: Basophils # (auto) 0.01 K/uL (0-0.2); Basophils % (auto) 0.1 %; Hematocrit (blood only) 39.2 % (42-52); Hemoglobin 13.2 g/dL (14.0-18.0); Immature Granulocytes # (auto) 0.05 K/uL (0.00-0.02); Immature Granulocytes % (auto) 0.3 %; Lymphocytes # (auto) 0.59 K/uL (1.2-3.4); Lymphocytes % (auto) 3.6 %; Mean Corpuscular Hemoglobin 29.2 pg (25-34); Mean Corpuscular Hgb Conc 33.7 g/dL (32-36); Mean Corpuscular Volume 86.7 fL (80-100); Mean Platelet Volume 10.9 fL (7.4-10.4); Monocytes # (auto) 0.98 K/uL (0.11-0.59); Neutrophils # (auto) 14.74 K/uL (1.4-6.5); Platelet Count 167 K/uL (130-400); RDW Coefficient of Variation 14.8 % (11.5-14.5); Red Blood Count 4.52 M/uL (4.7-6.1); White Blood Count 16.37 K/uL (4.8-10.8)
[2021-10-26] MEDS: VANCOMYCIN HCL 750 MG in SODIUM CHLORIDE 0.9% 500 ML IV SCH (10:50)
[2021-10-26] MEDS: ENOXAPARIN INJ 40 MG/0.4 ML SYR SQ SCH (11:33)
--- NOTE | 2021-10-26 14:11 | Pharmacy Report ---
Pharmacy Vanc AUC Short Note - Date of Service October 26, 2021 - Assessment & Plan Assessment * 66 year old M receiving VANCOMYCIN for treatment of sepsis secondary to R leg cellulitis, also murmur noted by provided (r/o endocarditis?). Pharmacy is consulted to dose vancomycin. Patient is also receiving ceftriaxone. * Patient is incarcerated and does have h/o IVDU * Pertinent microbiologic data includes: no growth in blood cx's to date * Day # 3 of antimicrobial therapy. * Renal fxn stable/unchanged. Plan Vancomycin * AUC/NOAH is the preferred PK/PD target for vancomycin * AUC guided dosing is effective and associated with decreased risk of nephrotoxicity compared to traditional trough targets * Has been receiving 750mg IV Q 12 hours. * Trough level of 7 mcg/mL obtained today is predicted to achieve target AUC/NOAH of less than 400 mg/L.hr therefore will change dose to 1000mg IV Q 12 hrs as this dose is predicted to achieve an AUC/NOAH of 400-600 and may be associated with a 10 % risk of nephrotoxicity * Will check trough level again in 2-3 days Pharmacy will continue to follow and will adjust dose/frequency as necessary. Thank you.
--- NOTE | 2021-10-26 20:58 | Billing Data ---
Date of Service October 26, 2021 Coding Level of Care Code 38948 Subseq Hosp Care Lvl 2
[2021-10-26] MEDS: VANCOMYCIN HCL 1,000 MG in SODIUM CHLORIDE 0.9% 250 ML IV SCH (21:49)
[2021-10-26] MEDS ORDERED: CALCIUM CARBONATE 500 MG CHEWABLE TAB PO PRN (21:55)
[2021-10-27] MEDS: ENOXAPARIN INJ 40 MG/0.4 ML SYR SQ SCH (07:08)
[2021-10-27 07:12] LABS: Basophils # (auto) 0.02 K/uL (0-0.2); Basophils % (auto) 0.2 %; Eosinophils # (auto) 0.05 K/uL (0-0.5); Eosinophils % (auto) 0.5 %; Hematocrit (blood only) 40.9 % (42-52); Hemoglobin 13.7 g/dL (14.0-18.0); Immature Granulocytes # (auto) 0.02 K/uL (0.00-0.02); Immature Granulocytes % (auto) 0.2 %; Lymphocytes # (auto) 1.21 K/uL (1.2-3.4); Lymphocytes % (auto) 12.9 %; Mean Corpuscular Hemoglobin 28.7 pg (25-34); Mean Corpuscular Hgb Conc 33.5 g/dL (32-36); Mean Corpuscular Volume 85.7 fL (80-100); Mean Platelet Volume 11.1 fL (7.4-10.4); Monocytes # (auto) 0.88 K/uL (0.11-0.59); Monocytes % (auto) 9.4 %; Neutrophils % (auto) 76.8 %; Platelet Count 174 K/uL (130-400); RDW Coefficient of Variation 14.7 % (11.5-14.5); RDW Standard Deviation 46.5 fL (36.4-46.3); Red Blood Count 4.77 M/uL (4.7-6.1); White Blood Count 9.38 K/uL (4.8-10.8)
[2021-10-27 07:36] LABS: BUN Creatinine Ratio 13.3 (10-20); Calcium 8.5 mg/dl (8.5-10.1); Creatinine Clr Calc Pharmacy 85.5 ml/min; Est GFR (African American) 107.6 ml/min; Est GFR (Non-African American) 92.8 ml/min; Potassium 3.4 mmol/L (3.5-5.1)
[2021-10-27] MEDS ORDERED: POTASSIUM CHLORIDE CRTAB 20 MEQ TABCR PO STA (07:42)
--- NOTE | 2021-10-27 10:46 | Hospitalist Progress Note ---
Date of Service October 27, 2021 Assessment & Plan (1) Cellulitis of leg, right: Plan: Patient is a 66 year old male inmate w/ PMHx of meth IVDU and arthritis who was admitted to [facility] on 10/24 for sepsis 2/2 RLE cellulitis. Sepsis 2/2 RLE Cellulitis, Sepsis resolved - continues to be febrile, most recently overnight - will re-check blood cultures this morning (first set was negative at 48 hours) - would get TTE if blood cultures become positive - Received CTX and Vancomycin in ED in addition to 1L NSS, CTX stopped on 10/25 - Continue Vancomycin Hypokalemia - K 3.4 this AM, repleted - continue to monitor Dispo: Med/Surg with tele FEN: Regular diet DVT: Lovenox Code: Full code (2) Sepsis: Admission and Anticipated Discharge Date Admission Date: October 24, 2021 Supervising Physician Co-Signing Physician Notes Attending addendum: I have physically seen this patient, have supervised the medical residents activities, and agree with the progress note above unless as otherwise noted. Assessment and Plan: Cellulitis of right leg- decrease in amount of erythema and edema of affected leg. repeated cultures due to recurrent fever. Continue vancomycin IV Ceftriaxone has been stopped. Follow blood culture and sensitivities Remaining orders and notations as noted Subjective Patient was febrile to 38.2C overnight. This AM he reports doing well overall. No issues/concerns. Eating/sleeping/voiding/stooling normally. Review of Systems Review of Systems: Denies fever/chills, chest pain, palpitations, SOB, cough, N/V, abdominal pain, rash. Physical Exam Physical Exam: General: A&Ox3. NAD. Cooperative. HEENT: Atraumatic, normocephalic. Pulm: CTAB A&P. -wheezes, -rales, -rhonchi. Symmetrical chest rise. No increase work of breathing. No respiratory distress. Cardiac: RRR, -mrg. Radial pulses intact and symmetrical. Abdominal: soft, non-tender, non-distended, BS x 4 Skin: erythematous rash on RLE is significantly smaller than previously based on initially marking of borders. No ulcers/lacerations, purulent discharge, or red streaking. No TTP but mildly warm. Area extends from distal nash to knee but is non-circumferential Results & Data Results & Data ([facility]) Vital Signs (Past 12 Hours) Vital Signs Temp Pulse Pulse Resp BP Pulse Ox 10/27/21 08:08 37.1 C 71 16 141/81 H 94 10/27/21 08:03 87 10/27/21 04:21 37 C 74 18 131/73 94 10/27/21 00:00 101 H Resident Activity Tracking Resident Involvement: Resident Care Provided Care Provided: Adult Hospital Medicine (1) Sepsis Sepsis acute organ dysfunction status: unspecified Sepsis type: sepsis due to unspecified organism Qualified Code(s): A41.9 - Sepsis, unspecified organism
[2021-10-27] MEDS: VANCOMYCIN HCL 1,000 MG in SODIUM CHLORIDE 0.9% 250 ML IV SCH ×2 (11:14→22:09)
--- NOTE | 2021-10-27 20:13 | Billing Data ---
Date of Service October 27, 2021 Coding Level of Care Code 87116 Subseq Hosp Care Lvl 2
--- NOTE | 2021-10-28 05:04 | Hospitalist Progress Note ---
Date of Service October 28, 2021 Assessment & Plan (1) Cellulitis of leg, right: (2) Sepsis: Admission and Anticipated Discharge Date Admission Date: October 24, 2021 Subjective Now afebrile >24hr. Tm 37.2 at 1500 yesterday. Results & Data Results & Data ([facility]) Vital Signs (Past 12 Hours) Vital Signs Temp Pulse Pulse Resp BP BP Pulse Ox 10/28/21 04:02 36.9 C 65 18 128/80 95 10/28/21 01:39 80 10/28/21 00:14 37.1 C 69 16 129/66 96 10/27/21 19:26 36.9 C 82 18 153/65 H 95 (1) Sepsis Sepsis acute organ dysfunction status: unspecified Sepsis type: sepsis due to unspecified organism Qualified Code(s): A41.9 - Sepsis, unspecified organism
[2021-10-28] MEDS ORDERED: VANCOMYCIN TROUGH ONE (09:30)
[2021-10-28 09:47] LABS: Basophils # (auto) 0.02 K/uL (0-0.2); Basophils % (auto) 0.2 %; Eosinophils % (auto) 2.3 %; Hematocrit (blood only) 38.2 % (42-52); Hemoglobin 12.6 g/dL (14.0-18.0); Immature Granulocytes # (auto) 0.02 K/uL (0.00-0.02); Immature Granulocytes % (auto) 0.2 %; Lymphocytes # (auto) 1.13 K/uL (1.2-3.4); Lymphocytes % (auto) 13.2 %; Mean Corpuscular Hemoglobin 28.5 pg (25-34); Mean Corpuscular Volume 86.4 fL (80-100); Mean Platelet Volume 10.1 fL (7.4-10.4); Monocytes # (auto) 0.85 K/uL (0.11-0.59); Monocytes % (auto) 9.9 %; Neutrophils # (auto) 6.35 K/uL (1.4-6.5); Neutrophils % (auto) 74.2 %; Platelet Count 196 K/uL (130-400); RDW Coefficient of Variation 14.7 % (11.5-14.5); RDW Standard Deviation 46.6 fL (36.4-46.3); Red Blood Count 4.42 M/uL (4.7-6.1); White Blood Count 8.57 K/uL (4.8-10.8)
[2021-10-28] MEDS ORDERED: SULFAMETHOXAZOLE/TRIMETHOPRIM DS 800/160MG TAB PO SCH (10:00)
[2021-10-28 10:07] LABS: BUN Creatinine Ratio 10.2 (10-20); Calcium 8.5 mg/dl (8.5-10.1); Creatinine Clr Calc Pharmacy 83.5 ml/min; Est GFR (Non-African American) 92.3 ml/min; Magnesium 2.2 mg/dl (1.8-2.4); Potassium 3.7 mmol/L (3.5-5.1)
[2021-10-28] MEDS: ENOXAPARIN INJ 40 MG/0.4 ML SYR SQ SCH (10:32)
--- NOTE | 2021-10-28 11:09 | Discharge Summary ---
Date of Service October 28, 2021 Admission HPI Per Admitting Provider Patient is a 66 year old with no past medical or surgical history that presents with history of rigors, chills, and redness/pain/swelling of his RLE. Patient notes that around 9AM this morning he had woke up with chills and shaking. He also notes that he started with swelling and redness in his RLE shortly afterwards. Interestingly enough, he notes that he injured this leg when he was a teen and since then every so often he would have a similar presentation that would require antibiotics before the redness, pain, and swelling would dissipate. He notes currently that he has a headache, tenderness to palpation of his distal RLE, fever, and chills. He denies any NVD, SOB, Chest pain, chest pressure, abdominal pain, dysuria. Med Hx: History of a heart murmur that has "been there since I was little" Surg Hx: pt denies any history of surgeries Soc Hx: Pt denies tobacco, alcohol, illicit drug use Medications: Patient denies use of any chronic medications Admission Exam Per Admitting Provider Constitutional: well developed, well nourished and cooperative; no acute distress and + not appropriately hydrated Eyes: PERRL, conjunctivae normal, anicteric sclerae ENMT: external ear and nose normal, oropharynx normal Mouth: + edentulous (on bottom, not wearing his dentures ) Neck: trachea midline, no thyromegaly Respiratory: normal respiratory effort, lungs clear to auscultation Cardiovascular: Rate/Rhythm: regular rhythm and + tachycardic Heart Sounds: normal S1, normal S2 and + murmur (2-3/6 MARQUEZ ) Vessels: no JVD Extremities: + calf tenderness (RLE ) and + edema (1+ RLE ) Gastrointestinal (Abdomen): normal bowel sounds, soft, nontender, no hepatosplenomegaly Musculoskeletal: no cyanosis or clubbing, extremities motor strength 5/5 Skin: Erythema noted just below the R knee spreading towards just proximal to the R ankle. Leg is tender to palpation wild mild swelling. A few healing abrasions are noted on the anterior tibia. Neurologic: PERRL, EOMI, accommodation nl, no face palsy, no dysarthria Psychiatric: A+Ox3, euthymic affect Principal Diagnosis RLE cellulitis sepsis Discharge Exam General: well appearing 66yoM, non-toxic, NAD HEENT: NCAT. Mouth - MMM with no tonsillar edema or exudates. Cardiac: Normal rate and regular rhythm; S1 and S2 present with no murmurs, rubs, or gallops. Pulmonary: Good respiratory effort with symmetric expansion of the chest. No use of accessory muscles. Lungs were clear to auscultation bilaterally with no crackles or wheezes. Abdominal: Abdomen was soft, nondistended, and non-tender to palpation. Derm: RLE demonstrating 1+ pitting edema alongside predominantly anterior erythema with skin wrinkling, no evidence of abscess. Skin warm to touch. Interdigital exam revealing of crackled skin. No TTP. Discharge Data Allergies Allergy/AdvReac Type Severity Reaction Status Date / Time No Known Allergies Allergy Unverified 10/24/21 18:32 Consultations 10/24/21 19:10 ED Decision to Admit Stat Ordered Studies 10/24/21 19:54 US venous doppler LE RT Urgent RIGHT LOWER EXTREMITY VENOUS DOPPLER HISTORY: Right leg swelling and redness COMPARISON STUDY: None. FINDINGS: There is normal compressibility, flow, and augmentation within the right lower extremity deep venous system. Mild right inguinal lymphadenopathy. Dominant lymph node measures 24 x 16 x 11 mm. IMPRESSION: No DVT within the right lower extremity. Mild right inguinal lymphadenopathy. This may be reactive. Hospital Course (1) Lab test negative for COVID-19 virus: (2) Cellulitis of leg, right: Patient is a 66 year old male w/ PMHx of meth IVDU and arthritis who was admitted to [facility] on 10/24 for sepsis secondary to RLE cellulitis. Sepsis due to RLE Cellulitis -- Sepsis resolved - initially presented septic, presumed to be secondary to RLE cellulitis - afebrile >24 hours prior to discharge with improved clinical presentation and leukocytosis - no evidence of bacteremia while here: admission BCX - NG x 48, rBCX - NG x 24 at discharge - Transitioned from CFTX + vancomycin --> vancomycin --> Bactrim DS b.i.d. at discharge -- continue for at least an additional 5 days (earliest end date 11/01). If no clinical improvement, consider adding additional Strep coverage with Keflex 500mg q.i.d. - Unfortunately, do not have wound to sample at this time - Continue moisturizer between toes Hypokalemia - 3.7 at d/c -- resolved following repletion Code: Identifies as full code (3) Sepsis: (4) Imprisonment and other incarceration: Total Time Total Time Spent Total Time Spent (In Minutes): 20 minutes Discharge Plan Discharge Items [facility] Disposition[facility] Reason For Visit: CELLULITIS, SEPSIS Discharge Diagnosis: RLE cellulitis sepsis Condition on Discharge: Fair Activity: Per Instructions section Non-emergency contact: Primary Care Provider Call non-emergency contact if: your symptoms worsen, your pain is not controlled, your temperature is above 101, your wound has increased redness, your wound has increased drainage and your wound pain has increased Follow-up/Referrals: Dewayne DUKES [Primary Care Provider] - Diet: Regular Addtl Attending Provider Instructions: Patient is a 66 year old male w/ PMHx of meth IVDU and arthritis who was admitted to [facility] on 10/24 for sepsis secondary to RLE cellulitis. Sepsis due to RLE Cellulitis -- Sepsis resolved - initially presented septic, presumed to be secondary to RLE cellulitis - afebrile >24 hours prior to discharge with improved clinical presentation and leukocytosis - no evidence of bacteremia while here: admission BCX - NG x 48, rBCX - NG x 24 at discharge - Transitioned from CFTX + vancomycin --> vancomycin --> Bactrim DS b.i.d. at discharge -- continue for at least an additional 5 days (earliest end date 11/01). If no clinical improvement, consider adding additional Strep coverage with Keflex 500mg q.i.d. - Unfortunately, do not have wound to sample at this time - Continue moisturizer between toes Hypokalemia - 3.7 at d/c -- resolved following repletion Code: Identifies as full code Pending Studies at Discharge: Yes Studies:: repeat bcx Stand-Alone Forms: My [facility] Skilled Items Patient informed of condition?: Yes Discharge Level of Care: Other Communicable Disease: No Discharge Prognosis: Improving Lines: None Urinary Catheter: No Medications and DC Order Prescriptions: New sulfamethoxazole-trimethoprim [Bactrim DS] 800-160 mg Tablet 1 tab PO Q12 5 Days Qty: 10 RF: 0 Discharge Orders: Discharge Order (Routine); Ordered 10/28/21 Ordered By: Terence Mcneill Admission Data Admit Date/Time: 10/24/21 20:01 Attending Provider: Richar Loving Admit Provider: Anibal Velasco Primary Care Provider: Dewayne DUKES Other Providers: Henry Franklin Other Interventions: Discharge Summary Assessment (RN) Last Done: 10/28/21 13:48 Supervising Physician Co-Signing Physician Notes I also saw the patient confirmed santamaria portions of the history and physical examination. Agree with the impression and plan as noted in the resident documentation. Patient without complaints today. Denies pain of the right lower extremity. 128/80, 87, 18, 36.8, 95% on room air Upon examination, the area of erythema is well with in the inked border from his initial presentation. With palpation of this area, very minimal tenderness. Right lower extremity cellulitis, improving Marked improvement clinically, remains afebrile Transition to Bactrim DS 1 p.o. twice daily Reassessment at [facility] Discussed signs and symptoms of worsening infection with the patient Additional per resident documentation Resident Activity Tracking Resident Involvement: Resident Care Provided Care Provided: Adult Hospital Medicine
== END 2021-10-28 16:35 | DRG 872 ==
LOC: ED 15:40 → EDINP 20:01 → SUATTDRO 20:01 → EDINP 22:50 → 2W 10-25 17:18